=== PATIENT | female | born 1945 | race Caucasian/White ===

== ENCOUNTER 2017-03-27 11:36 | Emergency (ER) | payer OTHER, MEDICARE ==
[~2017-03-27] VITALS: Ht 170.2 cm; Wt 90.9 kg
[~2017-03-27 11:36] MED LIST: DILT180C56 PO; DOXA1 PO; FENO160T PO; HYDR-2768 PO; LAMI200T PO; LEVA500T PO; LEVO75TA3 PO; LORTA5 PO; PRED5PAK PO; Z.0.OXYGENDME NC
[2017-03-27 12:02] VITALS: BP 141/62; PULSE 67; RESP 16; TEMP 98.6; O2SAT 93
[2017-03-27] MEDS ORDERED: FENO160T PO (12:18)
[2017-03-27] MEDS ORDERED: METO25TA3 PO (12:18)
[2017-03-27] MEDS ORDERED: ALPR0.25 PO (12:18)
[2017-03-27] MEDS ORDERED: DILT120T PO (12:18)
[2017-03-27] MEDS ORDERED: HYDR25TA5 PO (12:18)
[2017-03-27] MEDS ORDERED: LEVO75TA3 PO (12:18)
[2017-03-27] MEDS ORDERED: DOXA1TAB35 PO (12:18)
[2017-03-27] MEDS ORDERED: LAMO200T PO (12:18)
--- NOTE | 2017-03-27 12:41 | PD ---
HPI Chief Complaint: Dizziness Time Seen by Provider: 12:38 Travel History International Travel<30 days: No Contact w/Intl Traveler<30days: No Traveled to known affect area: No History of Present Illness HPI This 71-year-old female is complaining of feeling nauseated. Yesterday she had an onset of vertigo. She had trouble walking and she started vomiting. She called her doctor and he called it doctor called in prescriptions for meclizine and promethazine. She took the meclizine and it did seem to help the dizziness. She has just mild dizziness now. She has no history of stroke. She has a pacemaker. She has had 2 hip surgeries and back surgery she has had surgery on her neck. She does get cramps in her belly at times. She is not having headache PFSH Past Medical History Arthritis: Yes Blood Disorders: No Anxiety: Yes Heart Rhythm Problems: No Cancer: Yes (BASAL CELL CA NOSE) Cardiovascular Problems: Yes (PACEMALER) High Cholesterol: No Chemotherapy: No Congestive Heart Failure: No Diabetes: No Diminished Hearing: No Endocrine: Yes Gastrointestinal Disorders: Yes GERD: Yes Genitourinary: No Headaches: No Hypertension: Yes Immune Disorder: No Musculoskeletal: Yes (CARPEL TUNNEL) Neurologic: Yes Psychiatric: Yes Reproductive: No Respiratory: Yes Radiation Therapy: No Seizures: Yes Thyroid Disease: Yes Menopausal: Yes : 4 Para: 2 Miscarriage: 2 Past Surgical History AICD: No Body Medical Devices: HARDWARE IN BACK (SCREWS) Coronary Artery Bypass Graft: No Endocrine Surgery: Yes (THYROIDECTOMY) Eye Surgery: Yes (LASER SX 2008) Joint Replacement: Yes (BILAT HIP) Pacemaker: No Other Surgery: Yes Social History Alcohol Use: No Tobacco Use: No (QUIT 2006) Substance Use: No Allergies-Medications (Allergen,Severity, Reaction): Coded Allergies: morphine (Unverified Allergy, Severe, Anaphylaxis, 03/27/17) Reported Meds & Prescriptions Reported Meds & Active Scripts Active Zofran Odt (Ondansetron Odt) 4 Mg Tab 4 Mg SL Q6HR PRN Reported Alprazolam 0.25 Mg Tab 0.25 Mg PO HS Metoprolol Tartrate 25 Mg Tab 25 Mg PO BID Doxazosin (Doxazosin Mesylate) 2 Mg Tab 2 Mg PO DAILY Levothyroxine (Levothyroxine Sodium) 75 Mcg Tab 75 Mcg PO DAILY Fenofibrate 160 Mg Tab 160 Mg PO DAILY Hydrochlorothiazide 25 Mg Tab 25 Mg PO DAILY Lamotrigine 200 Mg Tab 200 Mg PO BID Diltiazem (Diltiazem HCl) 120 Mg Tab 180 Mg PO BID Review of Systems General / Constitutional: No: Fever, Chills Eyes: No: Diploplia HENT: No: Headaches, Congestion Cardiovascular: No: Chest Pain or Discomfort, Palpitations Respiratory: No: Shortness of Breath, Wheezing Gastrointestinal: Positive: Nausea, Vomiting Genitourinary: No: Urgency, Frequency Musculoskeletal: No: Myalgias Skin: No Rash, No Itching Neurologic: No: Weakness Psychiatric: No: Anxiety Hematologic/Lymphatic: No: Easy Bruising Physical Exam Narrative GENERAL: Well-developed female SKIN: Focused skin assessment warm/dry. HEAD: Atraumatic. Normocephalic. EYES: Pupils equal and round. No scleral icterus. No injection or drainage. There is some left beating horizontal nystagmus on rightward gaze ENT: No nasal bleeding or discharge. Mucous membranes pink and moist. NECK: Trachea midline. No JVD. CARDIOVASCULAR: Regular rate and rhythm. No murmur appreciated. RESPIRATORY: No accessory muscle use. Clear to auscultation. Breath sounds equal bilaterally. GASTROINTESTINAL: Abdomen soft, non-tender, nondistended. Hepatic and splenic margins not palpable. MUSCULOSKELETAL: No obvious deformities. No clubbing. No cyanosis. No edema. NEUROLOGICAL: Awake and alert. No obvious cranial nerve deficits. Motor grossly within normal limits. Normal speech. PSYCHIATRIC: Appropriate mood and affect; insight and judgment normal. Data Data Last Documented VS Vital Signs Date Time Temp Pulse Resp B/P (MAP) Pulse Ox O2 Delivery O2 Flow Rate FiO2 03/27/17 13:48 59 20 122/68 (86) 91 03/27/17 12:02 98.6 Orders Orders Complete Blood Count With Diff (03/27/17 12:38) Comprehensive Metabolic Panel (03/27/17 12:38) Sodium Chlor 0.9% 1000 Ml Inj (Ns 1000 M (03/27/17 12:45) Ondansetron Inj (Zofran Inj) (03/27/17 12:45) Potassium Chloride (Kcl) (03/27/17 13:30) Labs Laboratory Tests Test 03/27/17 13:00 White Blood Count 6.5 TH/MM3 Red Blood Count 4.03 MIL/MM3 Hemoglobin 12.1 GM/DL Hematocrit 36.6 % Mean Corpuscular Volume 90.7 FL Mean Corpuscular Hemoglobin 30.0 PG Mean Corpuscular Hemoglobin Concent 33.1 % Red Cell Distribution Width 12.8 % Platelet Count 302 TH/MM3 Mean Platelet Volume 8.0 FL Neutrophils (%) (Auto) 51.2 % Lymphocytes (%) (Auto) 33.3 % Monocytes (%) (Auto) 9.3 % Eosinophils (%) (Auto) 5.6 % Basophils (%) (Auto) 0.6 % Neutrophils # (Auto) 3.3 TH/MM3 Lymphocytes # (Auto) 2.2 TH/MM3 Monocytes # (Auto) 0.6 TH/MM3 Eosinophils # (Auto) 0.4 TH/MM3 Basophils # (Auto) 0.0 TH/MM3 CBC Comment DIFF FINAL Differential Comment Blood Urea Nitrogen 13 MG/DL Creatinine 0.55 MG/DL Random Glucose 140 MG/DL Total Protein 6.9 GM/DL Albumin 3.5 GM/DL Calcium Level 8.9 MG/DL Alkaline Phosphatase 52 U/L Aspartate Amino Transf (AST/SGOT) 15 U/L Alanine Aminotransferase (ALT/SGPT) 16 U/L Total Bilirubin 0.2 MG/DL Sodium Level 140 MEQ/L Potassium Level 3.0 MEQ/L Chloride Level 102 MEQ/L Carbon Dioxide Level 29.4 MEQ/L Anion Gap 9 MEQ/L Estimat Glomerular Filtration Rate 108 ML/MIN [facility] Medical Decision Making Medical Screen Exam Complete: Yes Emergency Medical Condition: Yes Medical Record Reviewed: Yes Differential Diagnosis Differential includes vertigo, disequilibrium Narrative Course Patient appears to have vertigo with vomiting. There are no other neurologic problems. Meclizine is helping her vertigo fracture is not having it now she is complaining of some nausea and given Zofran with good results. Lab work is remarkable for potassium of 3. She says that her potassium is quite often low. Diagnosis Primary Impression: Vertigo Scripts Ondansetron Odt (Zofran Odt) 4 Mg Tab 4 MG SL Q6HR Y for Nausea/Vomiting, #15 TAB 0 Refills Prov: Lambert Pettit MD 03/27/17 Disposition: 01 DISCHARGE HOME Condition: Stable Lambert Pettit MD Mar 27, 2017 12:41
[2017-03-27] MEDS ORDERED: ONDANSETRON HCL 4 MG/2 ML VIAL IV PUSH ONE (12:45)
[2017-03-27] MEDS ORDERED: SODIUM CHLOR 0.9% 1000 ML INJ 1,000 ML IV ONE (12:45)
[2017-03-27 13:03] VITALS: BP 155/70; PULSE 58; RESP 20; O2SAT 95
[2017-03-27 13:16] LABS: AUTOMATED NEUTROPHIL # 3.3 TH/MM3 (1.8-7.7); BASOPHIL % 0.6 % (0.0-2.0); EOSINOPHIL # 0.4 TH/MM3 (0-0.4); EOSINOPHIL % 5.6 % (0.0-4.0); HEMATOCRIT 36.6 % (35.0-46.0); HEMO FLAGS DIFF FINAL; LYMPH % 33.3 % (9.0-44.0); LYMPHOCYTE # 2.2 TH/MM3 (1.0-4.8); MEAN CELL VOLUME 90.7 FL (80.0-100.0); MEAN CORPUSCULAR HGB CONC 33.1 % (32.0-36.0); MONO % 9.3 % (0.0-8.0); NEUT % 51.2 % (16.0-70.0); PLATELET COUNT 302 TH/MM3 (150-450); RED BLOOD COUNT 4.03 MIL/MM3 (4.00-5.30); RED CELL DISTRIBUTION WIDTH 12.8 % (11.6-17.2); WHITE BLOOD COUNT 6.5 TH/MM3 (4.0-11.0)
[2017-03-27 13:25] LABS: CHLORIDE 102 MEQ/L (98-107); SODIUM (NA) 140 MEQ/L (136-145)
[2017-03-27 13:29] LABS: ANION GAP 9 MEQ/L (5-15); BICARBONATE 29.4 MEQ/L (21.0-32.0); BLOOD UREA NITROGEN 13 MG/DL (7-18)
[2017-03-27] MEDS ORDERED: POTASSIUM CHLORIDE 10 MEQ CONTROLLED RELEASE TAB PO ONE (13:30)
[2017-03-27 13:32] LABS: ALT (GPT) 16 U/L (10-53); AST (GOT) 15 U/L (15-37); GLOMERULAR FILTRATION RATE 108 ML/MIN (>89)
[2017-03-27 13:33] LABS: TOTAL BILIRUBIN ADULT 0.2 MG/DL (0.2-1.0)
[2017-03-27 13:35] LABS: ALKALINE PHOSPHATASE 52 U/L (45-117)
[2017-03-27] MEDS ORDERED: ZOFR4TAB3 SL (13:36)
[2017-03-27 13:48] VITALS: BP 122/68; PULSE 59; RESP 20; O2SAT 91
== END 2017-03-27 14:22 | disposition home or self-care (01) ==
LOC: PHED 11:36
DX: R42 Dizziness and giddiness (principal); R11.2 Nausea with vomiting, unspecified
CPT/HCPCS: 80053; 85025; 96361; 96374; 99284; J2405; J7030

== ENCOUNTER 2017-07-23 17:34 | Emergency (ER) | payer MEDICARE, OTHER ==
[~2017-07-23 17:34] MED LIST changes: +ALPR0.25 PO; +DILT120T PO; -DILT180C56 PO; -DOXA1 PO; +DOXA1TAB35 PO; -HYDR-2768 PO; +HYDR25TA5 PO; -LAMI200T PO; +LAMO200T PO; -LEVA500T PO; -LORTA5 PO; +METO25TA3 PO; -PRED5PAK PO; -Z.0.OXYGENDME NC; +ZOFR4TAB3 SL
[2017-07-23 17:54] VITALS: BP 138/62; PULSE 72; RESP 20; TEMP 98.9; O2SAT 92
[2017-07-23] MEDS ORDERED: AMOX500T PO (18:01)
--- NOTE | 2017-07-23 18:11 | PD ---
HPI Chief Complaint: Cold / Flu Symptoms Time Seen by Provider: 17:59 Travel History International Travel<30 days: No Contact w/Intl Traveler<30days: No Traveled to known affect area: No History of Present Illness HPI 71-year-old female notes cough and congestion and flulike symptoms since Wednesday. Her primary started her on amoxicillin yesterday. She states she feels the same. She states she used to smoke but quit. She states she has had to use inhalers in the past when she's had a cold. She feels worse when she moves around. Denies other modifying factors. Quality is congestion. Severity is not improving. Duration is since Wednesday. PFSH Past Medical History Arthritis: Yes Blood Disorders: No Anxiety: Yes Heart Rhythm Problems: No Cancer: Yes (BASAL CELL CA NOSE) Cardiovascular Problems: Yes (PACEMALER) High Cholesterol: No Chemotherapy: No Congestive Heart Failure: No Diabetes: No Diminished Hearing: No Endocrine: Yes Gastrointestinal Disorders: Yes GERD: Yes Genitourinary: No Headaches: No Hypertension: Yes Immune Disorder: No Musculoskeletal: Yes (CARPEL TUNNEL) Neurologic: Yes Psychiatric: Yes Reproductive: No Respiratory: Yes Radiation Therapy: No Seizures: Yes Thyroid Disease: Yes Menopausal: Yes : 4 Para: 2 Miscarriage: 2 Past Surgical History AICD: No Body Medical Devices: HARDWARE IN BACK (SCREWS) Coronary Artery Bypass Graft: No Endocrine Surgery: Yes (THYROIDECTOMY) Eye Surgery: Yes (LASER SX 2008) Joint Replacement: Yes (BILAT HIP) Pacemaker: No Other Surgery: Yes Social History Alcohol Use: No Tobacco Use: No (QUIT 2006) Substance Use: No Allergies-Medications (Allergen,Severity, Reaction): Coded Allergies: morphine (Unverified Allergy, Severe, Anaphylaxis, 07/23/17) Reported Meds & Prescriptions Reported Meds & Active Scripts Active Prednisone 50 Mg Tab 50 Mg PO DAILY 5 Days Ventolin Hfa 18 GM Inh (Albuterol Sulfate) 90 Mcg/Act Aer 2 Puff INH Q4H PRN Reported Amoxicillin 500 Mg Tab 500 Mg PO TID Alprazolam 0.25 Mg Tab 0.25 Mg PO HS Metoprolol Tartrate 25 Mg Tab 25 Mg PO BID Doxazosin (Doxazosin Mesylate) 2 Mg Tab 2 Mg PO DAILY Levothyroxine (Levothyroxine Sodium) 75 Mcg Tab 75 Mcg PO DAILY Fenofibrate 160 Mg Tab 160 Mg PO DAILY Hydrochlorothiazide 25 Mg Tab 25 Mg PO DAILY Lamotrigine 200 Mg Tab 200 Mg PO BID Diltiazem (Diltiazem HCl) 120 Mg Tab 180 Mg PO BID Review of Systems Except as stated in HPI: all other systems reviewed are Neg Physical Exam Narrative GENERAL: Well-nourished, well-developed patient. SKIN: Warm and dry. HEAD: Normocephalic and atraumatic. EYES: No injection or drainage. ENT: No nasal drainage noted. Rhinorrhea noted NECK: Supple, trachea midline. CARDIOVASCULAR: Regular rate and rhythm RESPIRATORY: Expiratory wheezing bilaterally. No accessory muscle use. GASTROINTESTINAL: Abdomen nondistended. EXTREMITIES: No edema. NEUROLOGICAL: Awake and alert. Motor and sensory grossly within normal limits. Normal speech. Data Data Last Documented VS Vital Signs Date Time Temp Pulse Resp B/P (MAP) Pulse Ox O2 Delivery O2 Flow Rate FiO2 07/23/17 17:54 98.9 72 20 138/62 (87) 92 Orders Orders Chest, Pa & Lat (07/23/17 ) Influenzae A/B Antigen (07/23/17 17:57) Albuterol-Ipratropium Neb (Duoneb Neb) (07/23/17 18:15) Albuterol-Ipratropium Neb (Duoneb Neb) (07/23/17 18:45) Prednisone (Deltasone) (07/23/17 18:45) Ed Discharge Order (07/23/17 18:54) MDM Medical Decision Making Medical Screen Exam Complete: Yes Emergency Medical Condition: Yes Medical Record Reviewed: Yes (past history confirmed) Interpretation(s) cxr no acute flu is negative Differential Diagnosis COPD, pneumonia, URI Narrative Course Will check influenza, chest x-ray and dose with DuoNeb treatment and reevaluate Chest x-ray shows no pneumonia, influenza negative, patient with wheezing and so will repeat DuoNeb and dose with prednisone and to recheck Patient denies any new complaints and states that they are feeling better. Patient happy with care, all questions answered. Patient knows that follow up is incumbent on them and to return to the emergency room immediately if new or worsening symptoms develop. Patient given strict return precautions, vitals reviewed and pulse ox 94 at la, agrees to further workup as an outpatient. Diagnosis Primary Impression: COPD exacerbation Additional Impression: Upper respiratory infection Qualified Codes: J06.9 - Acute upper respiratory infection, unspecified Patient Instructions: General Instructions Additional Instructions: return as needed, follow with primary wednesday, continue supportive care as well Med/Other Pt SpecificInfo: Prescription(s) given Scripts Prednisone (Prednisone) 50 Mg Tab 50 MG PO DAILY for 5 Days, #5 TAB 0 Refills Prov: Lizz Tabares MD 07/23/17 Albuterol 18 GM Inh (Ventolin Hfa 18 GM Inh) 90 Mcg/Act Aer 2 PUFF INH Q4H Y for SHORTNESS OF BREATH, #1 INHALER 0 Refills Prov: Lizz Tabares MD 07/23/17 Disposition: 01 DISCHARGE HOME Condition: Stable Lizz Tabares MD Jul 23, 2017 18:11
[2017-07-23] MEDS ORDERED: RESP: ALBUTEROL 2.5 MG/IPRATROPIUM 0.5 MG NEB (SCH) NEB ONE ×2 (18:15→18:45)
--- NOTE | 2017-07-23 18:31 | RADRPT ---
EXAM DATE/TIME: 07/23/2017 18:03 [facility] COMPARISON: CHEST PA & LAT, November 02, 2015, 20:56. INDICATIONS : Cough. MEDICAL HISTORY : Cardiovascular disease. Hypertension SURGICAL HISTORY : Pacemaker. ENCOUNTER: Initial ACUITY: 4 - 6 days PAIN SCORE: 0/10 LOCATION: Bilateral chest FINDINGS: PA and lateral views of the chest demonstrate the lungs to be symmetrically aerated without evidence of mass, infiltrate or effusion. The 7 mm calcified granuloma lateral right lung is stable. The car diomediastinal contours are unremarkable. Stable mild degenerative changes in the thoracic spine. T ransvenous pacer leads stable in position. CONCLUSION: No acute cardiopulmonary disease. Ramirez Basilio MD on July 23, 2017 at 18:28 Board Certified Radiologist. This report was verified electronically.
[2017-07-23] MEDS ORDERED: VENTAER INH (18:40)
[2017-07-23] MEDS ORDERED: PRED50 PO (18:40)
[2017-07-23] MEDS ORDERED: predniSONE 50 MG TAB PO ONE (18:45)
[2017-07-23 19:05] VITALS: BP 119/62; PULSE 79; RESP 18; O2SAT 92
== END 2017-07-23 19:23 | disposition home or self-care (01) ==
LOC: PHED 17:34
DX: J44.1 Chronic obstructive pulmonary disease with (acute) exacerbation (principal); J06.9 Acute upper respiratory infection, unspecified; M19.90 Unspecified osteoarthritis, unspecified site; K21.9 Gastro-esophageal reflux disease without esophagitis; I10 Essential (primary) hypertension; R56.9 Unspecified convulsions; E07.9 Disorder of thyroid, unspecified; Z79.899 Other long term (current) drug therapy; Z88.5 Allergy status to narcotic agent
CPT/HCPCS: 71020; 87804; 94640; 94664; 99284; J7512

== ENCOUNTER 2018-06-08 04:07 | Observation (INO) ==
[2018-06-08 04:33] LABS: Baso % (Auto) 0.6 % (0.0-2.0); Eos # (Auto) 0.5 th/mm3 (0.0-0.4); Eos % (Auto) 5.5 % (0.0-4.0); Hematocrit 38.5 % (35.0-46.0); Lymph # (Auto) 2.2 th/mm3 (1.0-4.8); Lymph % (Auto) 26.3 % (9.0-44.0); Mean Corpuscular HGB Conc 33.7 % (32.0-36.0); Mean Corpuscular Hemoglobin 31.3 pg (27.0-34.0); Mean Corpuscular Volume 92.9 fL (80.0-100.0); Mean Platelet Volume 7.8 fL (7.0-11.0); Mono # (Auto) 0.7 th/mm3 (0.0-0.9); Mono % (Auto) 8.8 % (0.0-8.0); Neut # (Auto) 4.9 th/mm3 (1.8-7.7); Neut % (Auto) 58.8 % (16.0-70.0); Platelet Count 288 th/mm3 (150-450); Red Blood Count 4.15 mil/mm3 (4.00-5.30); Red Cell Distribution Width 12.8 % (11.6-17.2); White Blood Count 8.3 th/mm3 (4.0-11.0)
[2018-06-08 04:39] LABS: Chloride 101 meq/L (98-107); Potassium 3.2 meq/L (3.5-5.1); Sodium 139 meq/L (136-145)
[2018-06-08 04:43] LABS: Albumin 3.8 g/dL (3.4-5.0); Anion Gap 8 meq/L (5-15); Calcium 8.9 mg/dL (8.5-10.1); Carbon Dioxide 30.1 meq/L (21.0-32.0); Glucose,Random 156 mg/dL (74-106); Lipase 127 U/L (73-393); Magnesium 1.4 mg/dL (1.5-2.5)
[2018-06-08 04:44] LABS: Blood Urea Nitrogen 16 mg/dL (7-18)
[2018-06-08 04:46] LABS: Alanine Aminotransferase 19 U/L (10-53); Aspartate Aminotransferase 17 U/L (15-37); Glomerular Filtration Rate Greater Than 89 mL/min (>89)
[2018-06-08 04:48] LABS: Total Protein 7.5 g/dL (6.4-8.2)
[2018-06-08 04:49] LABS: Alkaline Phosphatase 63 U/L (45-117)
--- NOTE | 2018-06-08 04:55 | ED ---
HPI General Chief Complaint: Chest Pain Stated Complaint: Chest pain Time Seen by Provider: 06/08/18 04:21 Source: patient and family Mode of arrival: ambulatory Limitations: no limitations History of Present Illness HPI narrative: 72-year-old female presents to the emergency department by private transportation the care of her daughter for evaluation of retrosternal chest pain since 8 PM last evening. Patient states pain is constant 7/10 in intensity. Patient also has back pain but has had this in the past and does not seem to be related and is unchanged from her previous pain. Patient has had no shortness of breath no sweats mild nausea no vomiting. Patient denies known history of pancreatitis gastritis peptic ulcer disease has been told in the past she has cholelithiasis. Patient denies any abdominal pain. Patient denies any referred neck jaw back shoulder arm or extremity pain. Patient denies any diaphoresis. No near syncope or syncope. No lower extremity pain or swelling. No history of DVT or PE. No recent long distance travel protracted bedrest or surgical procedure. Due to persistent pain decided come to the emergency room for evaluation. 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 Pacemaker placed 3 years ago. Patient also has history of hypertension dyslipidemia hypothyroidism. MD complaint: Reports chest pain STEMI Alert: No Onset (ago): hour(s) Duration: constant Onset: during rest Pain location: Reports substernal Severity: moderate Severity scale (1-10): 7 Quality: Reports tightness and dull Pain radiation: Reports none Relieving factors: nothing Exacerbating factors: nothing Context: Denies recent illness, recent surgery, recent immobilization, recent travel, trauma/injury, new medications and history of DVT/PE Associated symptoms: Reports nausea; Denies vomiting, diaphoresis, dyspnea, sense of impending doom, syncope, palpitations, fever, cough and leg swelling Treatments prior to arrival chest pain: Reports none Related Data On Oral Contraceptives: No Home Medications Medication Instructions Recorded Confirmed alprazolam 0.25 mg PO HS 06/08/18 06/08/18 diltiazem HCl [Cardizem CD] 180 mg PO DAILY 06/08/18 06/08/18 doxazosin 4 mg PO HS 06/08/18 06/08/18 fenofibrate 160 mg PO DAILY 06/08/18 06/08/18 hydrochlorothiazide 25 mg PO DAILY 06/08/18 06/08/18 lamotrigine 200 mg PO BID 06/08/18 06/08/18 levothyroxine 75 mcg PO DAILY 06/08/18 06/08/18 metoprolol tartrate 25 mg PO BID 06/08/18 06/08/18 Allergies Allergy/AdvReac Type Severity Reaction Status Date / Time morphine AdvReac Mild Vomiting Verified 06/08/18 04:40 Review of Systems ROS: all other systems reviewed are negative PMFSH History History Provided By: Patient (cholelithiasis) Medical History Medical History Anxiety (Acute) COPD (chronic obstructive pulmonary disease) (Acute) Cardiac arrhythmia (Acute) HTN (hypertension) (Acute) History of gallstones (Acute) Hypercholesteremia (Acute) Hypothyroidism (Acute) Macular degeneration (Acute) Pacemaker (Acute) Seizure disorder (Acute) Surgical History Surgical History H/O spinal fusion (Acute) H/O thyroidectomy (Acute) History of cataract surgery (Acute) History of hip replacement, total (Acute) Social History Social History Substance History: No History of Abuse Second Hand Smoke Exposure: No Smoking Status: Former smoker How Often Do You Have a Drink Containing Alcohol: Never Recent Travel in [facility] within the Last 8 Weeks: No Recent Out of Country Travel within the Last 8 Weeks: No Exam Narrative Exam Narrative: GENERAL: Well-nourished, well-developed patient. SKIN: Focused skin assessment warm/dry. HEAD: Normocephalic. EYES: No scleral icterus. No injection or drainage. NECK: Supple, trachea midline. No JVD or lymphadenopathy. CARDIOVASCULAR: Regular rate and rhythm without murmurs, gallops, or rubs. RESPIRATORY: Breath sounds equal bilaterally. No accessory muscle use. GASTROINTESTINAL: Abdomen soft, non-tender, no guarding no rebound, no clinical Reynolds sign, nondistended. MUSCULOSKELETAL: No cyanosis, or edema. Radial and dorsalis pedis pulses 2+ to palpation bilaterally BACK: Nontender without obvious deformity. No CVA tenderness. Course Initial Documented Vital Signs Temperature 97.4 F L 06/08/18 04:27 Pulse Rate 62 06/08/18 04:27 Respiratory Rate 14 06/08/18 04:27 Blood Pressure 179/76 H 06/08/18 04:27 Pulse Oximetry 94 L 06/08/18 04:27 Last Documented Vital Signs Temperature 97.4 F L 06/08/18 04:27 Pulse Rate 70 06/08/18 05:56 Respiratory Rate 15 06/08/18 05:56 Blood Pressure 138/68 06/08/18 05:56 Pulse Oximetry 97 06/08/18 05:56 Medical Decision Making MDM Narrative Medical decision making narrative: @ 4:50 chest pain is 4/10 in intensity decreased from 7/10 in intensity after 2 sublingual nitroglycerin however patient did become nauseated without near syncope but 30 mmHg drop in blood pressure following nitroglycerin administration; zofran ordered. After 3 sublingual nitroglycerin pain is 1/10 in intensity feels well but is sensitive to nitroglycerin causing her blood pressure to drop to received bolus of normal saline with quick response and resolution of blood pressure decrease. Cardiac enzymes are found to be in normal range Patient given replacement of potassium and magnesium Patient will be admitted to chest pain center per protocol call placed to have a service for observation chest pain center per protocol Medical Screen Exam Complete: Yes Emergency Medical Condition: Yes Differential Diagnosis Differential Diagnosis: Chest pain, atypical chest pain, ACS, WI, dissection, PE , esophageal spasm, biliary colic, cholecystitis, pancreatitis Medical Records Medical records reviewed: Yes I reviewed the patient's medical records. Lab Data Result diagrams: 06/08/18 04:20 06/08/18 04:20 Lab Results 06/08/18 06/08/18 Range/Units 04:20 04:20 CBC w Diff Auto diff final WBC 8.3 (4.0-11.0) th/mm3 RBC 4.15 (4.00-5.30) mil/mm3 Hgb 13.0 (11.6-15.3) gm/dL Hct 38.5 (35.0-46.0) % MCV 92.9 (80.0-100.0) fL MCH 31.3 (27.0-34.0) pg MCHC 33.7 (32.0-36.0) % RDW 12.8 (11.6-17.2) % Plt Count 288 (150-450) th/mm3 MPV 7.8 (7.0-11.0) fL Neut % (Auto) 58.8 (16.0-70.0) % Lymph % (Auto) 26.3 (9.0-44.0) % [place] % (Auto) 8.8 H (0.0-8.0) % Eos % (Auto) 5.5 H (0.0-4.0) % Baso % (Auto) 0.6 (0.0-2.0) % Neut # (Auto) 4.9 (1.8-7.7) th/mm3 Lymph # (Auto) 2.2 (1.0-4.8) th/mm3 [place] # (Auto) 0.7 (0.0-0.9) th/mm3 Eos # (Auto) 0.5 H (0.0-0.4) th/mm3 Baso # (Auto) 0.0 (0.0-0.2) th/mm3 WBC Differential . Differential Comment . Sodium 139 (136-145) meq/L Potassium 3.2 L (3.5-5.1) meq/L Chloride 101 (98-107) meq/L Carbon Dioxide 30.1 (21.0-32.0) meq/L Anion Gap 8 (5-15) meq/L BUN 16 (7-18) mg/dL Creatinine 0.63 (0.50-1.00) mg/dL Estimated GFR Greater than 89 (>89) mL/min Random Glucose 156 H (74-106) mg/dL Calcium 8.9 (8.5-10.1) mg/dL Magnesium 1.4 L (1.5-2.5) mg/dL Total Bilirubin 0.3 (0.2-1.0) mg/dL AST 17 (15-37) U/L ALT 19 (10-53) U/L Alkaline Phosphatase 63 (45-117) U/L Total Creatine Kinase 65 (26-192) U/L Troponin I Less than 0.02 L (0.02-0.05) ng/mL Total Protein 7.5 (6.4-8.2) g/dL Albumin 3.8 (3.4-5.0) g/dL Lipase 127 (73-393) U/L Imaging Data Radiologist's impression: Chest X-Ray 06/08/18 04:21 CONCLUSION: Mild diffuse interstitial prominence Discharge Plan Discharge Disposition Patient Disposition: 30 Still Patient Discharge Condition Condition: Stable Discharge Details Diagnosis: Chest pain Physicians Team ED Provider: Josee Perez Primary Care Provider: Edu Sandy Attending Provider: Ab Buitrago Discharge Interventions Interventions: Vital Signs Last Done: 06/08/18 05:38 Status ED Status: Admitted Observation Patient
[2018-06-08 05:01] LABS: Creatine Kinase 65 U/L (26-192)
[2018-06-08] MEDS: Sod Chloride 0.9% Inj 1,000 ML IV.CONT SCH ×3 (05:05→14:29)
[2018-06-08] MEDS ORDERED: Magnesium Oxide 400 MG Tablet PO ONE (05:05)
--- NOTE | 2018-06-08 05:13 | XR ---
EXAM DATE: 06/08/2018 5:10 AM EST AGE/SEX: 72 years / Female INDICATIONS: Chest pain. CLINICAL DATA: This is the patient's initial encounter. Patient reports that signs and symptoms have been present for 2 days and indicates a pain score of 6/10. MEDICAL/SURGICAL HISTORY: . Cardiovascular disease. Hypertension Pacemaker. COMPARISON: COMP, XR CHEST UPRIGHT, SINGLE VIEW, 07/27/2017. . FINDINGS: A pacing implement is present with control pack over left upper chest. Diffuse mild interstitial prom inence without evidence of focal alveolar consolidation or significant effusion. Cardiac contours are stable and satisfactory. CONCLUSION: Mild diffuse interstitial prominence Electronically signed by: Oz Doe MD 06/08/2018 5:11 AM EST
[2018-06-08] MEDS ORDERED: Bisacodyl 10 MG Supp RECTAL PRN (05:51)
[2018-06-08] MEDS ORDERED: Senna/Docusate Sodium 8.6/50 MG Tablet PO SCH (09:00)
[2018-06-08 10:51] LABS: Creatine Kinase 54 U/L (26-192)
--- NOTE | 2018-06-08 11:32 | P.HP ---
History of Present Illness Primary Care Physician: Edu Sandy MD Chief Complaint: Abdominal pain History of Present Illness: 72-year-old female with known history of hypertension, hyperlipidemia , hypothyroidism, chronic back pain who presented to the hospital for evaluation of abdominal/chest discomfort. Patient states that at approximately 8 PM last night 1 hour after she ate ham and being super fried fish he started developing a burning type sensation in her epigastric region and lower chest area which she described as a fullness sensation of a 3/10 on a discomfort scale. There is no radiation to neck, back, shoulder, arm. Patient denied any nausea, vomiting, diaphoresis, shortness of breath, dyspnea. Patient did try to take some Tylenol and Tums without any improvement. Because the discomfort continue to last she went to the emergency department for evaluation she was given nitroglycerin with complete alleviation of her symptoms. Patient does go to Dr. Doyle on a regular basis. This saw him 1 month ago. She states that he has not had any cardiac stress testing ordered. She had cardiac stress test done years ago by Dr. Sandy which was normal. Currently the patient is asymptomatic. Patient had workup done which was unremarkable and it was recommended by the ER physician that the patient be observed in the chest pain center for further evaluation and management. - Diagnosis (1) Chest pain Review of Systems All other systems reviewed negative except as stated in HPI Cardiovascular: Reports chest pain Gastrointestinal: Reports abdominal pain PMFSH - History History Provided By: Patient (cholelithiasis) - Medical History Medical History: Medical History (Last Reviewed 06/08/18 @ 11:31 by SHAY Walker) Anxiety COPD (chronic obstructive pulmonary disease) Cardiac arrhythmia HTN (hypertension) History of gallstones Hypercholesteremia Hypothyroidism Macular degeneration Seizure disorder - Surgical History Surgical History: Surgical History (Last Updated 06/08/18 @ 11:32 by SHAY Walker) H/O spinal fusion H/O thyroidectomy History of cataract surgery History of cholecystectomy History of hip replacement, total Pacemaker - Family History Family History: Family History (Last Updated 06/08/18 @ 12:18 by SHYA Walker) Other Family history of heart disease - Tobacco History Second Hand Smoke Exposure: No Tobacco Use In Past 30 Days: No Smoking Status: Former smoker Tobacco Type: Cigarettes Number of Pack Years (if former smoker): 30 (Patient quit smoking 10 years ago) - Alcohol History How Often Do You Have a Drink Containing Alcohol: Never - Substance Use History Substance History: No History of Abuse - Travel History Recent Travel in the [place] Within the Last 8 Weeks: No Recent Travel Out of the Country Within the Last 8 Weeks: No - Immunization History Tetanus Immunization: Unsure Medications and Allergies Active Medications: Active Medications Al Hydroxide/Mg Hydroxide (Milk Of Magnesia Liq) 30 ml PO Q12H PRN PRN Reason: Mild Constipation Bisacodyl (Dulcolax Supp) 10 mg RECTAL DAILY PRN PRN Reason: SEVERE CONSITIPATION Sodium Chloride (Ns Inj) 1,000 mls @ 100 mls/hr IV.CONT .Q10H JUAN Last Admin: 06/08/18 05:05 Dose: 100 mls/hr Lactulose (Lactulose Liq) 30 ml PO DAILY PRN PRN Reason: SEVERE CONSITIPATION Senna/Docusate Sodium (Cassia-Colace) 1 tab PO BID [facility] Sennosides (Senokot) 17.2 mg PO Q12H PRN PRN Reason: Moderate Constipation Sodium Chloride (Ns Flush) 2 ml IV.FLUSH UNSCH PRN PRN Reason: FLUSH AFTER USING IV ACCESS Allergies Allergy/AdvReac Type Severity Reaction Status Date / Time morphine AdvReac Mild Vomiting Verified 06/08/18 04:40 Home Medications Medication Instructions Recorded Confirmed Type alprazolam 0.25 mg PO HS 06/08/18 06/08/18 History diltiazem HCl [Cardizem CD] 180 mg PO DAILY 06/08/18 06/08/18 History doxazosin 4 mg PO HS 06/08/18 06/08/18 History fenofibrate 160 mg PO DAILY 06/08/18 06/08/18 History hydrochlorothiazide 25 mg PO DAILY 06/08/18 06/08/18 History lamotrigine 200 mg PO BID 06/08/18 06/08/18 History levothyroxine 75 mcg PO DAILY 06/08/18 06/08/18 History metoprolol tartrate 25 mg PO BID 06/08/18 06/08/18 History Exam Vital signs: Vital Signs 06/08/18 04:27 06/08/18 04:58 06/08/18 05:00 Temperature 97.4 F L Pulse Rate 62 60 Respiratory Rate 14 Blood Pressure 179/76 H 149/66 H Pulse Oximetry 94 L 97 06/08/18 05:10 06/08/18 05:38 06/08/18 05:56 Temperature Pulse Rate 70 Respiratory Rate 15 Blood Pressure 116/48 L 133/58 L 138/68 Pulse Oximetry 97 06/08/18 07:06 06/08/18 09:00 06/08/18 10:53 Temperature Pulse Rate 82 65 61 Respiratory Rate 17 16 16 Blood Pressure 146/67 H 140/58 L 150/59 H Pulse Oximetry 96 97 96 Intake & Output 06/07/18 06/08/18 06/08/18 18:59 06:59 18:59 Weight 91 kg Narrative: GENERAL: Well-developed, well-nourished, in no acute distress. alert and orientated HEENT: Head is normocephalic without any lesions or masses noted. Facial features are symmetric. Eyes: Pupils equal round reactive to light. Extraocular muscles are intact. Conjunctivae were clear. Oropharyngeal: Pharynx without any erythema edema. Tongue is midline without deviation. Buccal mucosa is moist without any masses or lesions NECK: Supple without any masses. Trachea midline no deviation. No JVD, no bruits are appreciated CARDIAC: Regular rhythm, regular rate. S1/S2 are heard. No murmurs gallops or rubs. LUNGS: Clear to auscultation bilaterally. No wheeze, rhonchi or rales. No use of accessory muscles on inspiration or expiration. ABDOMEN: Soft, nontender. Nondistended. Bowel sounds heard in all 4 quadrants. No organomegaly or masses. Negative rebound, negative guarding EXTREMITIES: No edema, pulses are equal bilaterally. No cyanosis or clubbing NEUROLOGY: Mood and affect appear appropriate. Cranial nerves II through XII grossly intact. Muscle strength 5/5 in upper and lower extremities bilaterally. Deep tendon reflexes are 2+ in upper and lower extremities bilaterally. Results - Labs CBC & Chem 7: 06/08/18 04:20 06/08/18 04:20 Labs: Laboratory Results - last 24 hr 06/08/18 06/08/18 06/08/18 04:20 04:20 06:30 CBC w Diff Auto diff final WBC 8.3 RBC 4.15 Hgb 13.0 Hct 38.5 MCV 92.9 MCH 31.3 MCHC 33.7 RDW 12.8 Plt Count 288 MPV 7.8 Neut % (Auto) 58.8 Lymph % (Auto) 26.3 Beckham % (Auto) 8.8 H Eos % (Auto) 5.5 H Baso % (Auto) 0.6 Neut # (Auto) 4.9 Lymph # (Auto) 2.2 Beckham # (Auto) 0.7 Eos # (Auto) 0.5 H Baso # (Auto) 0.0 WBC Differential . Differential Comment . Sodium 139 Potassium 3.2 L Chloride 101 Carbon Dioxide 30.1 Anion Gap 8 BUN 16 Creatinine 0.63 Estimated GFR Greater than 89 Random Glucose 156 H Calcium 8.9 Magnesium 1.4 L Total Bilirubin 0.3 AST 17 ALT 19 Alkaline Phosphatase 63 Total Creatine Kinase 65 Troponin I Less than 0.02 L Less than 0.02 L Total Protein 7.5 Albumin 3.8 Lipase 127 06/08/18 10:20 CBC w Diff WBC RBC Hgb Hct MCV MCH MCHC RDW Plt Count MPV Neut % (Auto) Lymph % (Auto) Beckham % (Auto) Eos % (Auto) Baso % (Auto) Neut # (Auto) Lymph # (Auto) Beckham # (Auto) Eos # (Auto) Baso # (Auto) WBC Differential Differential Comment Sodium Potassium Chloride Carbon Dioxide Anion Gap BUN Creatinine Estimated GFR Random Glucose Calcium Magnesium Total Bilirubin AST ALT Alkaline Phosphatase Total Creatine Kinase 54 Troponin I Less than 0.02 L Total Protein Albumin Lipase - Imaging Impressions Chest X-Ray 06/08/18 04:21 CONCLUSION: Mild diffuse interstitial prominence Caprini VTE Risk Assessment Caprini VTE Risk Assessment: Moderate/High Risk (score >= 2) Caprini Risk Assessment Model: Point Value = 1 Point Value = 2 Point Value = 3 Point Value = 5 Age 41-60 Minor surgery BMI > 25 kg/m2 Swollen legs Varicose veins or History of unexplained or recurrent spontaneous Oral contraceptives or hormone replacement Sepsis (< 1 month) Serious lung disease, including pneumonia (< 1 month) Abnormal pulmonary function Acute myocardial infarction Congestive heart failure (< 1 month) History of inflammatory bowel disease Medical patient at bed rest Age 61-74 Arthroscopic surgery Major open surgery (> 45 min) Laparoscopic surgery (> 45 min) Malignancy Confined to bed (> 72 hours) Immobilizing plaster cast Central venous access Age >= 75 History of VTE Family history of VTE Factor V Leiden Prothrombin [id number] Lupus anticoagulant Anticardiolipin antibodies Elevated serum homocysteine Heparin-induced thrombocytopenia Other congenital or acquired thrombophilia Stroke (< 1 month) Elective arthroplasty Hip, pelvis, or leg fracture Acute spinal cord injury (< 1 month) Prophylaxis Regimen: Total Risk Factor Score Risk Level Prophylaxis Regimen 0-1 Low Early ambulation 2 Moderate Order ONE of the following: *Sequential Compression Device (SCD) *Heparin 5000 units SQ BID 3-4 Higher Order ONE of the following medications: *Heparin 5000 units SQ TID *Enoxaparin/Lovenox 40 mg SQ daily (WT < 150 kg, CrCl > 30 mL/min) *Enoxaparin/Lovenox 30 mg SQ daily (WT < 150 kg, CrCl > 10-29 mL/min) *Enoxaparin/Lovenox 30 mg SQ BID (WT < 150 kg, CrCl > 30 mL/min) AND/OR *Sequential Compression Device (SCD) 5 or more Highest Order ONE of the following medications: *Heparin 5000 units SQ TID (Preferred with Epidurals) *Enoxaparin/Lovenox 40 mg SQ daily (WT < 150 kg, CrCl > 30 mL/min) *Enoxaparin/Lovenox 30 mg SQ daily (WT < 150 kg, CrCl > 10-29 mL/min) *Enoxaparin/Lovenox 30 mg SQ BID (WT < 150 kg, CrCl > 30 mL/min) AND *Sequential Compression Device (SCD) Assessment and Plan - Assessment (1) Chest pain Code(s): R07.9 - Chest pain, unspecified Status: Acute - Plan Chest pain, atypical -Patient with increased risk factors to include hypertension, hyper lipidemia, family history of heart disease and a history of tobacco use -Patient has been ruled out for acute coronary event with serial cardiac enzymes that are negative -Serial EKGs reviewed by myself and indicated pacemaker paced rhythm -Myocardial perfusion study was performed and indicated small fixed inferior wall perfusion defect with low risk. No evidence of any stress-induced perfusion abnormalities -Continue aspirin, nitroglycerin as needed -Oxygen as needed Hypertension, hyperlipidemia -Home medications have been continued Hypothyroidism -Home medication continued DVT prevention -Sequential compression devices Discharge Planning: Discharge home in stable condition Activity: Ad aneesh. Diet: Healthy heart diet Medication per medication reconciliation Follow-up with primary medical doctor in 1 week
[2018-06-08 14:02] VITALS: RESP 20
[2018-06-08] MEDS ORDERED: Regadenoson Inj 0.4 MG/5 ML Syringe IV.PUSH ONE (15:40)
--- NOTE | 2018-06-08 16:50 | NM ---
EXAM DATE: 06/08/2018 4:44 PM EST AGE/SEX: 72 years / Female INDICATIONS:Angina. . Chest pain. CLINICAL DATA: This is the patient's initial encounter. Patient reports that signs and symptoms have been present for 1 day and indicates a pain score of 2/10. MEDICAL/SURGICAL HISTORY: Seizures. Hypertension. Chronic obstructive pulmonary disease. Fusi on, lumbar. Pacemaker. COMPARISON: No prior exams available for comparison. DOSE: 8.3 mCi Tc 99m Myoview at rest 25.6 mCi [id number] at stress 0.4 mg Lexiscan STRESS SYMPTOMS: None. EJECTION FRACTION: 64 % TECHNIQUE: The patient underwent pharmacologic stress with infusion of prescribed dose. Continuous ECG tracing was monitored during stress. Gated SPECT imaging was performed after stress and conventi onal SPECT imaging was performed at rest. The examination was performed on a SPECT/CT scanner, both attenuation and non-corrected datasets were reviewed. FINDINGS: Distribution: The maximum perfused segment at stress is in the anterior wall. Perfusion Study: Small inferior wall periapical fixed defect is noted. The pattern of perfusion at s tress is otherwise within normal limits. No stress-induced reversible perfusion abnormalities. Gated Study: The inferior apex is dyskinetic with paradoxical motion. The ejection fraction is calculated at 64%. RISK CATEGORY: Low (<1% Annual Motality Rate) CONCLUSION: 1. Small fixed inferior wall perfusion defect with paradoxical wall motion. 2. No evidence of stressed induced perfusion abnormalities. 3. Normal ejection fraction. Electronically signed by: Rolando Encarnacion MD 06/08/2018 4:48 PM EST
--- NOTE | 2018-06-08 18:20 | ECG ---
Date Performed: 06/08/2018 Time Performed: 09:50:03 PTAGE: 72 years EKG: DEMAND ELECTRONIC VENTRICULAR PACEMAKER ABNORMAL RHYTHM ECG PREVIOUS TRACING : 06/08/2018 07.21 Since the previous tracing, no significant change noted DOCTOR: Noah Duarte Interpretating Date/Time 06/08/2018 18:20:15
[2018-06-08 18:34] VITALS: BP 133/60; PULSE 76; TEMP 97.6; O2SAT 92
--- NOTE | 2018-06-08 18:36 | ECG ---
Date Performed: 06/08/2018 Time Performed: 07:21:50 PTAGE: 72 years EKG: ELECTRONIC VENTRICULAR PACEMAKER ABNORMAL RHYTHM ECG PREVIOUS TRACING : 06/08/2018 04.15 Since the previous tracing, no significant change noted DOCTOR: Noah Duarte Interpretating Date/Time 06/08/2018 18:34:09
--- NOTE | 2018-06-08 18:42 | ECG ---
Date Performed: 06/08/2018 Time Performed: 04:15:53 PTAGE: 72 years EKG: ELECTRONIC VENTRICULAR PACEMAKER ABNORMAL RHYTHM ECG INTERPRETATION BASED ON A DEFAULT AGE OF 40 YEARS PREVIOUS TRACING : 11/02/2015 17.31 Compared to previous tracing, VENTRICULAR PACED RHYTH M IS NEW DOCTOR: Noah Duarte Interpretating Date/Time 06/08/2018 18:41:06
--- NOTE | 2018-06-09 17:03 | TR ---
Date Performed: 06/08/2018 Time Performed: 15:57:39 DOCTOR: Jennifer Neves DRUG LIST: CLINICAL HISTORY: REASON FOR TEST: REASON FOR ENDING: OBSERVATION: CONCLUSION: Lexiscan stress test was performed under standard four minute protocol. Radionuclid e was injected one minute prior to ending the test. No electrocardiographic abormalities were present to suggest ischemia. Nuclear imaging and interpretation are pending. COMMENTS: Lexiscan stress test was performed under standard four minute protocol. Radionuclide was injected one minute prior to ending the test. No electrocardiographic abormalities were present t o suggest ischemia. Nuclear imaging and interpretation are pending.
== END 2018-06-08 18:27 | disposition home or self-care (01) ==
LOC: PHED 04:07 → PHEDA 04:07 → PH3 10:55
PROVIDERS: ADMIT Family Medicine; ATTEND Family Medicine